=== PATIENT | female | born 1965 | race Caucasian/White ===

== ENCOUNTER 2022-03-06 21:32 | Emergency (ER) | payer OTHER ==
[2022-03-06] VITALS (7 sets, daily range): BP systolic 120–154; BP diastolic 73–89
[~2022-03-06] VITALS: Ht 165.1 cm; Wt 79.5 kg
[2022-03-06] MEDS ORDERED: LORTAB 1010 MG PO (22:30)
[2022-03-06] MEDS ORDERED: SILVADENE1 % EX (22:30)
== END 2022-03-06 23:48 | disposition home or self-care (01) | DRG 935 ==
LOC: ED 21:32
PROC: 2W2EX4Z Dressing of Right Hand using Bandage (ICD-10-PCS; principal; 2022-03-06)
DX: T23.141A Burn of first degree of multiple right fingers (nail), including thumb, initial encounter (principal); T23.151A Burn of first degree of right palm, initial encounter; I10 Essential (primary) hypertension; E11.9 Type 2 diabetes mellitus without complications; T31.0 Burns involving less than 10% of body surface; X15.3XXA Contact with hot saucepan or skillet, initial encounter; Y93.G3 Activity, cooking and baking; Y92.000 Kitchen of unspecified non-institutional (private) residence as the place of occurrence of the external cause